=== PATIENT | male | born 1990 | race Caucasian/White ===

== ENCOUNTER 2019-12-10 00:05 | Emergency (ER) | payer SELFPAY ==
[~2019-12-10] VITALS: Ht 175.3 cm; Wt 67.1 kg
[2019-12-10 00:31] VITALS: BP 124/97
--- NOTE | 2019-12-10 00:34 | NUR ---
PT TRIAGED AND LEFT IN TENT. Addendum: 12/10/19 at 0035 by [facility] YAQUELIN MADE AWARE OF PT STATUS
--- NOTE | 2019-12-10 01:14 | NUR ---
YAQUELIN SPIVEY EVALUATING PT.
--- NOTE | 2019-12-10 01:48 | NUR ---
NO NURSING INTERVENTION ORDERED BY ERMD.
--- NOTE | 2019-12-10 01:48 | NUR ---
COVID SWAB COLLECTED AND SENT TO LAB.
--- NOTE | 2019-12-10 01:48 | NUR ---
Patient discharged with v/s stable. Written and verbal after care instructions given and explained. Patient alert, oriented and verbalized understanding of instructions. Ambulatory with steady gait. All questions addressed prior to discharge. ID band removed. Patient advised to follow up with PMD. Rx of GUAIATUSSIN AND NAPROSYN given. Patient educated on indication of medication including possible reaction and side effects. Opportunity to ask questions provided and answered.
--- NOTE | 2019-12-11 20:57 | NUR ---
late entry -- positive COVID swab received. report given to infection control.
== END 2019-12-10 01:48 | disposition home or self-care (01) ==
LOC: MED 00:05 → EEVIPCON 00:05 → MED 01:48
DX: U07.1 COVID-19 (principal)
CPT/HCPCS: 99283; U0003

== ENCOUNTER 2019-12-23 11:10 | Emergency (ER) | payer SELFPAY ==
[~2019-12-23] VITALS: Ht 165.1 cm; Wt 68.0 kg
[2019-12-23 11:29] VITALS: BP 128/77
[2019-12-23] MEDS ORDERED: DEXAMETHASONE 10 MG/ML VIAL IM ONE (11:35)
[2019-12-23] MEDS ORDERED: IBUPROFEN 600 MG TAB PO ONE (11:35)
--- NOTE | 2019-12-23 11:35 | NUR ---
PT PLACED IN TENT FOR COVID PRECAUTIONS
[2019-12-23] MEDS ORDERED: ONDANSETRON 4 MG ODT PO ONE (11:40)
--- NOTE | 2019-12-23 11:40 | NUR ---
29 Y/O MALE FROM HOME C/O HEADACHE AND NAUSEA X 2 DAYS. PT TESTED + FOR COVID. DENIES VOMITING/DIARRHEA AT THIS TIME. DOES NOT APPEAR IN DISTRESS. DENIES COUGH/SOB. RR EVEN AND UNLABORED. VSS MEDHX: DENIES
[2019-12-23 12:16] VITALS: BP 128/77
--- NOTE | 2019-12-23 12:16 | NUR ---
Patient discharged with v/s stable. Written and verbal after care instructions given and explained. Patient alert, oriented and verbalized understanding of instructions. Ambulatory with steady gait. All questions addressed prior to discharge. ID band removed. Patient advised to follow up with PMD. Rx of PREDNISONE 20MG AND IBUPROFEN 600MG given. Patient educated on indication of medication including possible reaction and side effects. Opportunity to ask questions provided and answered.
== END 2019-12-23 12:16 | disposition home or self-care (01) ==
LOC: MED 11:10
DX: U07.1 COVID-19 (principal)
CPT/HCPCS: 96372; 99283; J1100; Q0162